=== PATIENT | female | born 1960 | race Caucasian/White ===

== ENCOUNTER 2022-01-31 09:57 | Outpatient (CLI) | payer OTHER | END 2022-01-31 09:58 | disposition home or self-care (01) | LOC: CSHRAD 09:57 | PROVIDERS: ATTEND Nurse Practitioner Adult Health | DX: R07.9 Chest pain, unspecified (principal); R06.02 Shortness of breath; Z87.891 Personal history of nicotine dependence | CPT/HCPCS: 71046 ==